=== PATIENT | female | born 1955 | race Caucasian/White ===

== ENCOUNTER 2018-12-25 11:01 | Emergency (ER) | payer BC, OTHER ==
--- NOTE | 2018-12-25 11:18 | ER Document Report ---
Addendum entered and electronically signed by ALLYN VERGARA PA-C 12/25/18 11:27: Course - Re-evaluation Re-evalutation: 12/25/18 11:27 Wrong patient on documentation. Disregard this RME note. - Vital Signs Vital signs: Temp Pulse Resp BP Pulse Ox 98.3 F 78 16 119/56 L 100 12/25/18 11:08 12/25/18 11:08 12/25/18 11:08 12/25/18 11:08 12/25/18 11:08 Original Note: ED Medical Screen (RME) - General Chief Complaint: Urinary Problem Stated Complaint: URINARY PROBLEMS Time Seen by Provider: 12/25/18 11:13 Primary Care Provider: KELLY COSBY MD [Primary Care Provider] - Follow up as needed TRAVEL OUTSIDE OF THE [place] IN LAST 30 DAYS: No - HPI Notes: 12/25/18 11:17 Patient is a 63-year-old female with a history of hypertension, hyperglyceridemia, vertigo who presents emergency department with family comp laining of chest discomfort/pressure with associated dizziness that began around 9 AM. Patient was given a nitro at her doctor's office morning and sent to the emergency department for evaluation. Patient states that she does feel "shaky" as well. No history of cardiac stents or bypass performed. She is being treated for a urinary infection currently. Denies DEAN, fever, neck pain, URI, Abd pain, n/v/d, or rash. I have treated and performed a rapid initial assessment of this patient. A comprehensive ED assessment and evaluation of the patient, analysis of test results and completion of medical decision making process will be conducted by additional ED providers. PHYSICAL EXAMINATION: GENERAL: Well-appearing, well-nourished and in no acute distress. A&Ox4. Answers questions appropriately. LUNGS: Breath sounds clear to auscultation bilaterally and equal. No wheezes rales or rhonchi. HEART: Regular rate and rhythm without murmurs, rubs, gallops. - Related Data Allergies/Adverse Reactions: No Known Allergies Allergy (Unverified 12/25/18 11:02) Physical Exam - Vital signs Vitals: Temp Pulse Resp BP Pulse Ox 98.3 F 78 16 119/56 L 100 12/25/18 11:08 12/25/18 11:08 12/25/18 11:08 12/25/18 11:08 12/25/18 11:08 Course - Vital Signs Vital signs: Temp Pulse Resp BP Pulse Ox 98.3 F 78 16 119/56 L 100 12/25/18 11:08 12/25/18 11:08 12/25/18 11:08 12/25/18 11:08 12/25/18 11:08 Doctor's Discharge - Discharge Referrals: KELLY COSBY MD [Primary Care Provider] - Follow up as needed
[2018-12-25] MEDS ORDERED: LIDOCAINE 1% INJ-PF (10 MG/ML) 30 ML SDV NEB ONE (11:40)
[2018-12-25] MEDS ORDERED: CEFTRIAXONE INJ 1000 MG VIAL IM ONE (11:40)
--- NOTE | 2018-12-25 11:40 | ER Document Report ---
HPI <JACOBO SANCHES - Last Filed: 12/25/18 13:12> - HPI Pain Level: Denies - ROS Systems Reviewed and Negative: Yes All other systems reviewed and negative - DERM Skin Color: Normal <ALLYN VERGARA - Last Filed: 12/25/18 14:08> - HPI Time Seen by Provider: 12/25/18 11:13 Past Medical History - Social History Smoking Status: Never Smoker Family History: Reviewed & Not Pertinent Patient has suicidal ideation: No Patient has homicidal ideation: No - Past Medical History Cardiac Medical History: Reports: Hx Hypertension Renal/ Medical History: Denies: Hx Peritoneal Dialysis GI Medical History: Reports: Hx Gastroesophageal Reflux Disease Past Surgical History: Reports: Hx Hysterectomy <ALLYN VERGARA - Last Filed: 12/25/18 14:08> Vertical Provider Document - CONSTITUTIONAL Agree With Documented VS: Yes Notes: PHYSICAL EXAMINATION: GENERAL: Well-appearing, well-nourished and in no acute distress. LUNGS: Breath sounds clear to auscultation bilaterally and equal. No wheezes rales or rhonchi. HEART: Regular rate and rhythm without murmurs, rubs, gallops. ABDOMEN: Soft, nontender, nondistended abdomen. No guarding, no rebound. No masses appreciated. Normal bowel sounds present. No CVA tenderness bilaterally. Musculoskeletal: FROM to passive/active. Strength 5+/5. Extremities: No cyanosis, clubbing, or edema b/l. Peripheral pulses 2+. Capillary refill less than 3 seconds. NEUROLOGICAL: Normal speech, normal gait. PSYCH: Normal mood, normal affect. SKIN: Warm, Dry, normal turgor, no rashes or lesions noted. - INFECTION CONTROL TRAVEL OUTSIDE OF THE [place] IN LAST 30 DAYS: No <ALLYN VERGARA - Last Filed: 12/25/18 14:08> Course - Vital Signs Vital signs: Temp Pulse Resp BP Pulse Ox 98.3 F 78 16 119/56 L 100 12/25/18 11:08 12/25/18 11:08 12/25/18 11:08 12/25/18 11:08 12/25/18 11:08 - Laboratory Laboratory results interpreted by me: 12/25/18 11:53 Urine Nitrite POSITIVE H Urine Urobilinogen 4.0 H <JACOBO SANCHES - Last Filed: 12/25/18 13:12> - Vital Signs Vital signs: Temp Pulse Resp BP Pulse Ox 98.3 F 78 16 119/56 L 100 12/25/18 11:08 12/25/18 11:08 12/25/18 11:08 12/25/18 11:08 12/25/18 11:08 <ALLYN VERGARA - Last Filed: 12/25/18 14:08> Discharge <MYRONJACOBO - Last Filed: 12/25/18 13:12> <ALLYN VERGARA - Last Filed: 12/25/18 14:08> - Discharge Clinical Impression: Acute UTI Condition: Stable Disposition: HOME, SELF-CARE Instructions: Urinary Tract Infection ([facility]) Additional Instructions: Please return to the emergency department if you have any worsening, or concern of your symptoms. Please return to the emergency department if you develop chest pain, difficulty breathing, severe abdominal pain, or ongoing vomiting. Please follow-up with your primary care physician in 2-3 days and any other recommended physicians. If prescribed, take all medications as directed. If you have any questions or concerns do not hesitate to return the emergency department for evaluation. Prescriptions: Sulfamethoxazole/Trimethoprim [Bactrim Ds Tablet] 1 each PO BID #14 tablet Referrals: KELLY COSBY MD [Primary Care Provider] - Follow up in 3-5 days
[2018-12-25 12:22] LABS: APPEARANCE,URINE CLEAR; BILIRUBIN,URINE NEGATIVE (NEGATIVE); GLUCOSE, URINE NEGATIVE (NEGATIVE); KETONES,URINE NEGATIVE (NEGATIVE); LEUKOCYTE ESTERASE,URINE NEGATIVE (NEGATIVE); NITRITE,URINE POSITIVE (NEGATIVE); PROTEIN,URINE NEGATIVE (NEGATIVE); URINE SPECIFIC GRAVITY 1.023
[2018-12-25 12:27] LABS: COLOR,URINE DARK YELLOW
--- NOTE | 2018-12-25 13:34 | ER Document Report ---
ED General - General Chief Complaint: Urinary Problem Stated Complaint: URINARY PROBLEMS Time Seen by Provider: 12/25/18 11:13 Primary Care Provider: KELLY COSBY MD [Primary Care Provider] - Follow up in 3-5 days TRAVEL OUTSIDE OF THE [place] IN LAST 30 DAYS: No - HPI Notes: Patient is a 63-year-old female that presents to the emergency department for chief complaint of dysuria and urinary frequency. Patient reports being treated for a urinary tract infection for the last 10 days. She states she was initially seen by her primary care doctor and started on Macrobid, she took 2 days of that medication and then was called and told it would not work so she was switched to ciprofloxacin. Patient has taken 8 days worth of Cipro and was feeling improved until 2 days ago. She states that she started having increased dysuria, urinary frequency and some urinary hesitancy. She denies any fever, chills, nausea, vomiting, abdominal pain, diarrhea or constipation. She denies any yeast infection. Patient also denies any flank pain. She did discuss her symptoms with her PCP over the phone and was told to come to the emergency room if she is having further issues. Patient states that her PCP said she may have a kidney stone. She denies history of kidney stones. Past Medical History: Negative Past Surgical History: Reviewed in chart Social History: Denies tobacco and alcohol Family History: Reviewed and noncontributory for presenting illness Allergies: Reviewed, see documented allergy list. REVIEW OF SYSTEMS: CONSTITUTIONAL : No fever No chills No diaphoresis No recent illness EENT: No vision changes No congestion No sore throat CARDIOVASCULAR: No chest pain No palpitations RESPIRATORY: No shortness of breath No cough No difficulty breathing GASTROINTESTINAL: No abdominal pain No nausea No vomiting No diarrhea GENITOURINARY: dysuria No hematuria No difficulty urinating Frequency MUSCULOSKELETAL: No back pain No leg pain No arm pain SKIN: No rashes No lesions LYMPHATIC: No swollen, enlarged glands. NEUROLOGICAL: No lightheadedness No headache No weakness No paresthesias PSYCHIATRIC: No anxiety No depression PHYSICAL EXAMINATION: Vital signs reviewed, nursing noted reviewed. GENERAL: Well-appearing, well-nourished and in no acute distress. HEAD: Atraumatic, normocephalic. EYES: Eyes appear normal, extraocular movements intact, sclera anicteric, conjunctiva are normal. ENT: nares patent, oropharynx clear without exudates. Moist mucous membranes. NECK: Normal range of motion, supple without lymphadenopathy LUNGS: Breath sounds clear to auscultation bilaterally and equal. No wheezes rales or rhonchi. HEART: Regular rate and rhythm without murmurs ABDOMEN: No CVA tenderness bilaterally soft, nontender, normoactive bowel sounds. No rebound, guarding, or rigidity. No masses appreciated. EXTREMITIES: Nontender, good range of motion, no pitting or edema. NEUROLOGICAL: No focal neurological deficits. Moves all extremities spontaneously Motor and sensory grossly intact on exam. PSYCH: Normal mood, normal affect. SKIN: Warm, Dry, normal turgor, no rashes or lesions noted on exposed skin - Related Data Allergies/Adverse Reactions: No Known Allergies Allergy (Unverified 12/25/18 11:02) Past Medical History - Social History Smoking Status: Never Smoker Family History: Reviewed & Not Pertinent Patient has suicidal ideation: No Patient has homicidal ideation: No - Past Medical History Cardiac Medical History: Reports: Hx Hypertension Renal/ Medical History: Denies: Hx Peritoneal Dialysis GI Medical History: Reports: Hx Gastroesophageal Reflux Disease Past Surgical History: Reports: Hx Hysterectomy Physical Exam - Vital signs Vitals: Temp Pulse Resp BP Pulse Ox 98.3 F 78 16 119/56 L 100 12/25/18 11:08 12/25/18 11:08 12/25/18 11:08 12/25/18 11:08 12/25/18 11:08 Course - Re-evaluation Re-evalutation: 12/25/18 13:32 Vitals reviewed. Nursing notes reviewed. Patient is afebrile and nontoxic in appearance. She has not had any flank or low back pain. She denies any suprapubic pain as well. Patient has no history of kidney stones and no current symptoms of a kidney stone. She has been on antibiotics for a total of 10 days. I do not have access to the urine culture reports. She was ordered a dose of Rocephin in triage which she has received. Patient is otherwise well and nontoxic. Without symptom of kidney stone or signs of sepsis further workup is not currently indicated in the emergency room. She will be switched to Bactrim for her persistent urinary tract infection. Did encourage her to talk to her PCP about referral to a urologist of her UTIs not resolving. Patient is in agreement with this plan of care and does not feel she needs workup for a kidney stone either. She is stable at discharge. Laboratory 12/25/18 11:53 Urine Color DARK YELLOW Urine Appearance CLEAR Urine pH 5.0 Ur Specific [place] 1.023 Urine Protein NEGATIVE Urine Glucose (UA) NEGATIVE Urine Ketones NEGATIVE Urine Blood NEGATIVE Urine Nitrite POSITIVE H Urine Bilirubin NEGATIVE Urine Urobilinogen 4.0 H Ur Leukocyte Esterase NEGATIVE Urine WBC (Auto) 3 Urine RBC (Auto) 2 Urine Bacteria (Auto) TRACE Squamous Epi Cells Auto 9 Urine Mucus (Auto) MANY Urine Ascorbic Acid NEGATIVE - Vital Signs Vital signs: Temp Pulse Resp BP Pulse Ox 98.3 F 78 16 119/56 L 100 12/25/18 11:08 12/25/18 11:08 12/25/18 11:08 12/25/18 11:08 12/25/18 11:08 - Laboratory Laboratory results interpreted by me: 12/25/18 11:53 Urine Nitrite POSITIVE H Urine Urobilinogen 4.0 H Discharge - Discharge Clinical Impression: Acute UTI Condition: Stable Disposition: HOME, SELF-CARE Instructions: Urinary Tract Infection ([facility]) Additional Instructions: Please return to the emergency department if you have any worsening, or concern of your symptoms. Please return to the emergency department if you develop chest pain, difficulty breathing, severe abdominal pain, or ongoing vomiting. Please follow-up with your primary care physician in 2-3 days and any other recommended physicians. If prescribed, take all medications as directed. If you have any questions or concerns do not hesitate to return the emergency department for evaluation. Prescriptions: Sulfamethoxazole/Trimethoprim [Bactrim Ds Tablet] 1 each PO BID #14 tablet Referrals: KELLY COSBY MD [Primary Care Provider] - Follow up in 3-5 days
[2018-12-25 13:58] VITALS: BP 123/71
--- NOTE | 2018-12-25 14:14 | ER Document Report ---
ED Medical Screen (RME) - General Chief Complaint: Urinary Problem Stated Complaint: URINARY PROBLEMS Time Seen by Provider: 12/25/18 11:13 Primary Care Provider: KELLY COSBY MD [Primary Care Provider] - Follow up in 3-5 days TRAVEL OUTSIDE OF THE [place] IN LAST 30 DAYS: No - HPI Notes: 12/25/18 Patient is a 63-year-old female who presents emergency department complaining of urinary burning, urgency, frequency, voiding small amounts over the past 2 weeks. She was originally placed on Macrobid which was found to be in different on the culture and sensitivity and was switched to Cipro which she thought was working well for her, but she began having symptoms again couple days ago. Patient was then evaluated last evening at a different emergency department and was placed back on Macrobid. Patient was not aware of the same medicine being used that was used originally so she presents here for evaluation. She does have a culture and sensitivity with her from the original urine sample. Denies DEAN, fever, neck pain, URI, CP, SOB, Abd pain, or rash. I have treated and performed a rapid initial assessment of this patient. A comprehensive ED assessment and evaluation of the patient, analysis of test results and completion of medical decision making process will be conducted by additional ED providers. PHYSICAL EXAMINATION: GENERAL: Well-appearing, well-nourished and in no acute distress. A&Ox4. Answers questions appropriately. LUNGS: Breath sounds clear to auscultation bilaterally and equal. No wheezes rales or rhonchi. HEART: Regular rate and rhythm without murmurs, rubs, gallops. ABDOMEN: Soft, nondistended abdomen. No guarding, no rebound. Normal bowel sounds present. No CVA tenderness bilaterally. non-tender (cannot elicit thorough abd exam w/o table, however). - Related Data Allergies/Adverse Reactions: No Known Allergies Allergy (Unverified 12/25/18 11:02) Past Medical History - Past Medical History Cardiac Medical History: Reports: Hx Hypertension Renal/ Medical History: Denies: Hx Peritoneal Dialysis GI Medical History: Reports: Hx Gastroesophageal Reflux Disease Past Surgical History: Reports: Hx Hysterectomy Physical Exam - Vital signs Vitals: Temp Pulse Resp BP Pulse Ox 98.3 F 78 16 119/56 L 100 12/25/18 11:08 12/25/18 11:08 12/25/18 11:08 12/25/18 11:08 12/25/18 11:08 Course - Vital Signs Vital signs: Temp Pulse Resp BP Pulse Ox 98.3 F 65 16 123/71 100 12/25/18 13:56 12/25/18 13:56 12/25/18 13:56 12/25/18 13:56 12/25/18 13:56 - Laboratory Laboratory results interpreted by me: 12/25/18 11:53 Urine Nitrite POSITIVE H Urine Urobilinogen 4.0 H Doctor's Discharge - Discharge Clinical Impression: Acute UTI Condition: Stable Disposition: HOME, SELF-CARE Instructions: Urinary Tract Infection ([facility]) Additional Instructions: Please return to the emergency department if you have any worsening, or concern of your symptoms. Please return to the emergency department if you develop chest pain, difficulty breathing, severe abdominal pain, or ongoing vomiting. Please follow-up with your primary care physician in 2-3 days and any other recommended physicians. If prescribed, take all medications as directed. If you have any questions or concerns do not hesitate to return the emergency department for evaluation. Prescriptions: Sulfamethoxazole/Trimethoprim [Bactrim Ds Tablet] 1 each PO BID #14 tablet Referrals: KELLY COSBY MD [Primary Care Provider] - Follow up in 3-5 days
== END 2018-12-25 13:58 | disposition home or self-care (01) ==
LOC: ER 11:01
DX: N39.0 Urinary tract infection, site not specified (principal); R35.0 Frequency of micturition; I10 Essential (primary) hypertension; Z87.440 Personal history of urinary (tract) infections; Z90.710 Acquired absence of both cervix and uterus
CPT/HCPCS: 99283; 96372; 87086; 81001; J3490; J0696